=== PATIENT | male | born 1985 | race Caucasian/White ===

== ENCOUNTER 2022-06-28 23:28 | Emergency (ER) | payer OTHER, SELFPAY ==
[2022-06-28 23:33] VITALS: BP 167/109; PULSE 102; RESP 18; TEMP 36.4; O2SAT 98
--- NOTE | 2022-06-29 00:03 | ED.GENADULT ---
HPI - General Adult General Chief complaint: Unspecified Stated complaint: dog bite, in custody Time Seen by Provider: 06/28/22 23:46 History of Present Illness HPI narrative: Patient is a 37-year-old male who presents to the ER for evaluation after being arrested and detained by use of a canine unit. Patient suffered superficial bite injuries to the left upper extremity. No gaping wounds. Unknown last tetanus shot. Has pain with range of motion but is able to perform it. Patient also reports recent injury to finger of the right hand that has some chronic pain and had some questionable infection but is no longer giving him acute issues and has no new redness or swelling to the area. He does endorse some abrasions to bilateral knees after being taken to the ground. He has been able to ambulate. He did not strike his head or lose consciousness. Review of Systems Review of Systems: All systems reviewed & are unremarkable except as noted in HPI and below Cardiovascular: Cardiovascular: Denies chest pain and Denies radiating jaw, neck or arm pain Respiratory: Respiratory: Denies cough and Denies dyspnea Gastrointestinal: Gastrointestinal: Denies abdominal pain, Denies nausea and Denies vomiting Integumentary/Breasts: Skin/Breast: Denies pruritus, Reports erythema, Denies rash and Reports sores Comments: Knee abrasions bilaterally, left arm superficial bite injuries. Neurologic: Denies syncope, Denies numbness and Denies tingling PMFSH Past Medical History Medical History (Updated 06/29/22 @ 00:09 by Alejandro Woodward MD) Hepatitis C Hypertension Surgical History Surgical History (Updated 06/29/22 @ 00:06 by Alejandro Woodward MD) No pertinent past surgical history Social History Social History (Updated 06/29/22 @ 00:06 by Alejandro Woodward MD) Substance use type: IV drugs Exam Narrative: GENERAL: Well-appearing, well-nourished, and in no acute distress. HEAD: Normocephalic, atraumatic. EYES: PERRL and EOMI. CHEST: Clear to auscultation. No respiratory distress. HEART: Regular rate and rhythm. Normal peripheral pulses. ABDOMEN: Soft, nontender, nondistended. EXTREMITIES: Normal range of motion. No edema. Abrasions bilateral knees not amenable to repair. Left upper extremity with abrasions to the forearm and biceps region consistent with dog bite injury but no gaping wounds or puncture wounds. SKIN: Warm, dry, no rash. NEURO: Alert and oriented x3. PSYCH: Normal mood and affect. Course Course Emergency Course: Patient will have his tetanus shot updated. Additionally he will be started on antibiotics to prevent possible infection from bite injury. Patient after evaluation reports that he is feeling suicidal. The please officer present confirms they are able to handle this issue at the correction. Vital Signs Vital signs: Vital Signs Temperature 97.6 F 06/28/22 23:33 Pulse Rate 102 H 06/28/22 23:33 Respiratory Rate 18 06/28/22 23:33 Blood Pressure 167/109 H 06/28/22 23:33 Pulse Oximetry 98 06/28/22 23:33 Oxygen Delivery Room Air 06/28/22 23:33 Temperature 97.6 F 06/28/22 23:33 Pulse Rate 102 H 06/28/22 23:33 Respiratory Rate 18 06/28/22 23:33 Blood Pressure 167/109 H 06/28/22 23:33 Pulse Oximetry 98 06/28/22 23:33 Oxygen Delivery Room Air 06/28/22 23:33 Medical Decision Making Vital Signs Vital Signs: Vital Signs Temperature 97.6 F 06/28/22 23:33 Pulse Rate 102 H 06/28/22 23:33 Respiratory Rate 18 06/28/22 23:33 Blood Pressure 167/109 H 06/28/22 23:33 Pulse Oximetry 98 06/28/22 23:33 Oxygen Delivery Room Air 06/28/22 23:33 Temperature 97.6 F 06/28/22 23:33 Pulse Rate 102 H 06/28/22 23:33 Respiratory Rate 18 06/28/22 23:33 Blood Pressure 167/109 H 06/28/22 23:33 Pulse Oximetry 98 06/28/22 23:33 Oxygen Delivery Room Air 06/28/22 23:33 Discharge Plan Discharge Clinical Impression: Dog bite of arm P
[2022-06-29] MEDS: AMOXICILLIN/CLAVULANATE K 875-125 MG TAB 1 TABLET PO (00:23)
[2022-06-29] MEDS: TETANUS,DIPHTHERIA,AC PERTUSSIS ADULT (0.5 ML) BOOSTRIX IM (00:23)
== END 2022-06-29 01:03 ==
PROVIDERS: Emergency Provider Emergency Medicine; PCP Nurse Practitioner Family
DX: S40.872A Other superficial bite of left upper arm, initial encounter (principal); W54.0XXA Bitten by dog, initial encounter; I10 Essential (primary) hypertension; Z23 Encounter for immunization
CPT/HCPCS: 90471; 90715; 99283; A9270